=== PATIENT | female | born 1960 | race Asian ===

== ENCOUNTER 2018-12-09 19:03 | Emergency (ER) | payer BC ==
[~2018-12-09] VITALS: Ht 167.6 cm; Wt 74.8 kg
[2018-12-09 19:13] VITALS: BP 165/82; Ht 167.6 cm; Wt 74.8 kg
== END 2018-12-09 22:09 | disposition left against medical advice (07) ==
LOC: ED 19:03
DX: S80.11XA Contusion of right lower leg, initial encounter (principal); R60.0 Localized edema; Z88.0 Allergy status to penicillin; W22.8XXA Striking against or struck by other objects, initial encounter; Y93.89 Activity, other specified; Y92.89 Other specified places as the place of occurrence of the external cause; Y99.8 Other external cause status